=== PATIENT | male | born 1950 | race Caucasian/White ===

== ENCOUNTER 2019-05-17 04:00 | Inpatient (IN) | payer MEDICARE, OTHER ==
[2019-05-17 04:51] VITALS: BP 115/88
[2019-05-17] MEDS ORDERED: Maalox 30 mL Cup PO PRN (04:51)
[2019-05-17] MEDS ORDERED: Magnesium Hydroxide (MOM) 30 mL UDC PO PRN (04:51)
[2019-05-17] MEDS ORDERED: RIBOFLAVIN 100 MG PO SCH (09:00)
[2019-05-17] MEDS ORDERED: UBIDECARENONE 100 MG PO SCH (09:00)
[2019-05-17] MEDS ORDERED: GLUCOSAMINE SULFATE DIPOT CHLR 1000 MG PO SCH (09:00)
[2019-05-17] MEDS: Ipratropium Neb 0.5 mg/2.5 mL UD HHN SCH ×2 (09:10→16:48)
[2019-05-17] MEDS: Multivitamin w/ Minerals Tab PO SCH (09:11)
[2019-05-17] MEDS: Pantoprazole 40 mg EC Tab PO SCH (09:11)
[2019-05-17] MEDS: Albuterol Nebulizer 2.5mg/3mL HHN SCH ×4 (09:12→20:53)
--- NOTE | 2019-05-17 15:07 | Psychiatric Evaluation ---
DATE OF SERVICE: 05/17/2019 PSYCHIATRIC INITIAL EVALUATION AND MENTAL STATUS EXAMINATION PATIENT'S AGE: 69. SEX: Male. PHYSICIAN: Said Velia Levine M.D. CHIEF COMPLAINT: "I was mad at myself for getting mad." HISTORY OF PRESENT ILLNESS: The patient is a 69-year-old male who has a long history of PTSD. The patient said that he has been angry lately and has been getting easily agitated. The patient said that he was coming in the airport and he was mad at a disabled omid on a wheelchair because he cut the line in front of him and he did not realize that he is disabled to himself and that is why he got in an argument with this other person. He added that just last night he also got into argument with his and he was eating pizza and drinking beer and his told him that he should go and check himself in the [place], but he started to think that he better kill himself and he started to have thoughts about running in front of traffic. The patient said that he had thoughts of suicide before, but he never tried to commit suicide. He has been in treatment in the [place] [facility] and he has been compliant with taking his medications. PAST PSYCHIATRIC HISTORY: The patient has history of PTSD and has been in treatment in the [place]. PAST MEDICAL HISTORY: The patient has Parkinson's disease. Also had acid reflux, bronchial asthma as well as benign prostatic hypertrophy. SOCIAL HISTORY: The patient is for 39 years and has 3 adopted children. 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 The patient said that he is trying to quit smoking and he smokes about 3-4 cigarettes a day, but he has been drinking alcohol a little bit more than he usually does. He denies any legal issues and denies any abuse issues, but he has PTSD from war. ALLERGIES: TRAMADOL CAUSES RASH. MENTAL STATUS EXAMINATION: The patient appears his stated age. Cooperative. Calm. Fair eye contact. Normal tone and rate of speech. Depressed mood. Thought process is goal directed. He denies hallucinations or delusions, but admits to suicidal ideations with plan and denies any homicidal ideations. The patient is alert and oriented to time, place, person and situation. Intact immediate, recent and remote memories. Fair insight. Judgment is questionable. Seems to be of average intelligence based on his verbal ability. ASSESSMENT: PRIMARY DIAGNOSES: 1. Major depression, severe, recurrent, without psychotic features. 2. Rule out bipolar disorder. SECONDARY DIAGNOSIS: Posttraumatic stress disorder. MEDICAL DIAGNOSES: Parkinson's disease, acid reflux disease, benign prostatic hypertrophy. TREATMENT PLAN: We will monitor the patient's behavior closely. We will continue her current medications, but we will add Lexapro 5 mg every day. Side effects, benefits and alternatives explained to the patient and the patient agreed to take it. ESTIMATED LENGTH OF STAY: 5-7 days. PATIENT'S STRENGTHS AND WEAKNESSES: The patient's general fund of knowledge is fair. Weakness is his ineffective coping. AFTER DISCHARGE PLAN: The patient will return home, and outpatient treatment and followup will continue as an outpatient. Also, the patient is a candidate for partial program. CRITERIA FOR DISCHARGE: The patient will not be suicidal and will stabilize psychotropic medications and will establish outpatient treatment plans. JOB# [id number]
[2019-05-18] MEDS: Albuterol Nebulizer 2.5mg/3mL HHN SCH ×5 (00:03→20:06)
--- NOTE | 2019-05-18 06:56 | Progress Notes ---
DATE: 05/18/2019 SUBJECTIVE: Chart reviewed and the patient interviewed. Also discussed the patient's condition with the staff and reviewed records and labs. The patient is still severely depressed, but his affect is slightly brighter. The patient is still in a depressed mood and still feels hopeless and helpless, but today he denies thoughts that he wants to jump in front of the traffic. The patient also is motivated for treatment and cooperative with the program. Otherwise, the patient did not start Lexapro yet. MENTAL STATUS EXAMINATION: The patient is calm and cooperative. Denies any intention to harm himself or others. ASSESSMENT: The patient is still depressed, but not suicidal. TREATMENT PLAN: Continue to monitor his behavior and his condition closely. Also, because of the patient complaining of severe insomnia, we will add trazodone 50 mg at bedtime. Also, continue to monitor his behavior and continue to follow up. [facility]# [id number]
[2019-05-18] MEDS: Ipratropium Neb 0.5 mg/2.5 mL UD HHN SCH ×3 (09:00→16:59)
[2019-05-18] MEDS: Pantoprazole 40 mg EC Tab PO SCH (10:13)
[2019-05-18] MEDS: Escitalopram Oxalate 5 mg Tab PO SCH (10:13)
[2019-05-18] MEDS: Multivitamin w/ Minerals Tab PO SCH (10:14)
--- NOTE | 2019-05-18 23:03 | History & Physical ---
ADMIT DATE: 05/17/2019 REASON FOR ADMISSION: Psychiatric disorders. HISTORY OF PRESENT ILLNESS: This is a 69-year-old male with underlying history of hypertension, lives at home with family who was admitted to Geropsych Unit by Dr. Levine. Dr. Levine requested a medical H and P on this patient. The patient denies any medical concerns. PAST MEDICAL HISTORY: Hypertension. PAST SURGICAL HISTORY: Hernias in the past. FAMILY HISTORY: Denies significant. SOCIAL HISTORY: Lives at home. Denies any alcohol, tobacco or drug use. CURRENT MEDICATIONS: Per med reconciliation list. ALLERGIES: Allergic to TRAMADOL. REVIEW OF SYSTEMS: Two point systems reviewed, appears negative. PHYSICAL EXAMINATION: VITAL SIGNS: Temperature 97.6, pulse 101, respirations 20, blood pressure 124/73. HEART: S1, S2 normal. LUNGS: Clear to auscultation. ABDOMEN: Soft, nontender. EXTREMITIES: No edema. LABORATORY DATA: No lab data is available. ASSESSMENT: 1. Hypertension. 2. Benign prostatic hypertrophy. 3. Parkinson's disease. 4. Migraine. 5. Mental disorders. PLAN: The patient is admitted to Geropsych Unit. The patient is on losartan. Monitor blood pressures. Psychotropic meds per psychiatrist. Continue Parkinson's med. Continue atorvastatin. Continue the BPH meds. The patient's condition and plan of care discussed with the nursing staff. Thank you Dr. Levine for allowing us to participate in the care of this patient. JOB# [id number]
[2019-05-19] MEDS: Albuterol Nebulizer 2.5mg/3mL HHN SCH ×2 (08:10→13:00)
[2019-05-19] MEDS: Escitalopram Oxalate 5 mg Tab PO SCH (08:29)
[2019-05-19] MEDS: Multivitamin w/ Minerals Tab PO SCH (08:30)
[2019-05-19] MEDS: Pantoprazole 40 mg EC Tab PO SCH (08:30)
--- NOTE | 2019-05-19 09:02 | Discharge Summary ---
DATE OF DISCHARGE: 05/19/2019 AGE: 69. SEX: Male. PHYSICIAN: Dr. Levine. FINAL DIAGNOSIS AND PRIMARY DIAGNOSIS: Major depression, severe, recurrent, without psychotic features. REASON FOR HOSPITALIZATION: The patient was admitted to the hospital on a 5150 hold after the patient called the [employer] stating that he wanted to kill himself by walking into traffic and the patient was placed on hold and brought into the hospital. HOSPITAL COURSE: The patient continued to be anxious and depressed. The patient admitted to his frustration lately, ended that he has been having difficulty with his mood. The patient started on Lexapro 5 mg every day. Gradually, the patient's affect was brighter. The patient admitted, has been stressed out, and he was agreeable to continue his treatment as an outpatient. He denied any intention to harm himself or others. The patient was discharged from the hospital. PHYSICAL EXAMINATION: The patient basically showed no major medical problems. Blood workup was also basically within normal. AFTER DISCHARGE PLANS: The patient discharged from the hospital with plans to continue his treatment as an outpatient. The patient has an appointment to see me in my office on , May 26, at 3:00 in [facility]. Appointment card was given to the patient. Also, a prescription of Lexapro 5 mg at bedtime for 15 days with 1 refill given to the patient upon discharge. [facility]# [id number]
[2019-05-19] MEDS: Ipratropium Neb 0.5 mg/2.5 mL UD HHN SCH (13:00)
== END 2019-05-19 14:14 | disposition home or self-care (01) | DRG 885 ==
LOC: GERO 04:00
PROVIDERS: ADMIT Psychiatry & Neurology Psychiatry; ATTEND Psychiatry & Neurology Psychiatry
DX: F33.2 Major depressive disorder, recurrent severe without psychotic features (principal); G20 Parkinson's disease; K21.9 Gastro-esophageal reflux disease without esophagitis; J45.909 Unspecified asthma, uncomplicated; N40.0 Benign prostatic hyperplasia without lower urinary tract symptoms; F43.10 Post-traumatic stress disorder, unspecified; I10 Essential (primary) hypertension; G43.909 Migraine, unspecified, not intractable, without status migrainosus
CPT/HCPCS: 83036-90; 90779; G0410; J7613; Z7610